=== PATIENT | male | born 1965 | race Hispanic/Latino ===

== ENCOUNTER 2018-11-05 22:11 | Emergency (ER) | payer SELFPAY ==
[2018-11-05] MEDS ORDERED: Dexamethasone 10 MG/ML VIAL ONE (23:30)
[2018-11-05] MEDS ORDERED: diphenhydrAMINE 25 MG CAP ONE (23:30)
== END 2018-11-05 23:49 | disposition home or self-care (01) ==
LOC: ERS 22:11
DX: L23.7 Allergic contact dermatitis due to plants, except food (principal)
CPT/HCPCS: 99283; J1100; Q0163